=== PATIENT | male | born 1985 | race Caucasian/White ===

== ENCOUNTER 2018-03-09 21:11 | Emergency (ER) | payer OTHER ==
[2018-03-09 21:23] VITALS: BP 151/94; PULSE 87; O2SAT 98
--- NOTE | 2018-03-09 21:34 | ERPHSYRPT ---
- History of Present Illness Time Seen by Provider: 03/09/18 21:29 Source: patient, police Exam Limitations: no limitations Patient Subjective Stated Complaint: pt is alert and oriented. pt is ambulatory. pt states that he tripped and the back of a chair caught him in the mouth and his tooth went through his lip. pt has a puncture to his inner and out lower lip on the left side. not actively bleeding. pt states he never hit the floor, did not lose consciousness, pt also denies hitting his head. Triage Nursing Assessment: see above Physician History: The patient is a 33-year-old male inmate at the [facility] accompanied by the director account management complaining that he tripped 2 hours ago, causing his lower lip to hit the back of the chair. When he hit the back of the chair, wanted his bottom teeth penetrated through his lower lip. He did not lose consciousness. His tetanus vaccination is 3 years old. Occurred: this evening, hours ago (2) Reason for Fall: tripped, fell from standing pos Injuries/Pain Location: face (lower lip) Loss of Consciousness: no loss of consciousness Quality: aching Severity of Pain-Max: mild Severity of Pain-Current: mild Modifying Factors: Improves With: nothing Associated Symptoms (Fall): denies symptoms Allergies/Adverse Reactions: No Known Drug Allergies Allergy (Unverified 03/09/18 21:23) Home Medications: No Reportable Medications [No Reported Medications] 03/09/18 [History] Hx Tetanus, Diphtheria Vaccination/Date Given: Yes (2014) Hx Influenza Vaccination/Date Given: Yes (Jan 2018) Immunizations Up to Date: Yes - Review of Systems Constitutional: No Fever, No Chills Eyes: No Symptoms Ears, Nose, & Throat: Other (lower lip lac) Respiratory: No Cough, No Dyspnea Cardiac: No Chest Pain, No Edema, No Syncope Abdominal/Gastrointestinal: No Abdominal Pain, No Nausea, No Vomiting, No Diarrhea Genitourinary Symptoms: No Dysuria Musculoskeletal: Fall, Injury Skin: Other (lac) Neurological: No Dizziness, No Focal Weakness, No Sensory Changes Psychological: No Symptoms Endocrine: No Symptoms Hematologic/Lymphatic: No Symptoms Immunological/Allergic: No Symptoms All Other Systems: Reviewed and Negative - Past Medical History Pertinent Past Medical History: No - Past Surgical History Past Surgical History: Yes Neuro Surgical History: No Pertinent History Cardiac: No Pertinent History Respiratory: No Pertinent History Gastrointestinal: No Pertinent History Genitourinary: No Pertinent History Musculoskeletal: Other Male Surgical History: No Pertinent History Other Surgical History: Group A strep in bicep surgery. - Social History Smoking Status: Former smoker Drug Use: none - Nursing Vital Signs Nursing Vital Signs: Initial Vital Signs Temperature 97.7 F 03/09/18 21:12 Pulse Rate 87 03/09/18 21:12 Respiratory Rate 16 03/09/18 21:12 Blood Pressure 151/94 03/09/18 21:12 O2 Sat by Pulse Oximetry 98 03/09/18 21:12 Pain Scale Pain Intensity 6 - Patricia Coma Score Best Eye Response (Douglass): (4) open spontaneously Best Verbal Response (Douglass): (5) oriented Best Motor Response (Patricia): (6) obeys commands Patricia Total: 15 - Physical Exam General Appearance: no apparent distress, alert Head Injury: lacerations (0.5 laceration to lower lip with penetration to oral buccal mucosa) Eye Exam: PERRL/EOMI ENT Exam: airway nml Neck Exam: normal inspection, No tenderness Respiratory/Chest Exam: normal breath sounds, No chest tenderness, No respiratory distress Cardiovascular Exam: normal heart sounds, regular rate/rhythm Gastrointestinal Exam: soft, No tenderness, No distention, No guarding, No ecchymosis Rectal Exam: not done Back Exam: normal inspection, No vertebral tenderness Extremity Exam: normal inspection, normal range of motion, pelvis stable, No deformities Neurologic Exam: alert, oriented x 3, cooperative, sensation nml, No motor deficits Skin Exam: laceration (0.5 cm through and through penetrating laceration to lower lip.) SpO2: 98 Oxygen Delivery: Room Air - Progress Progress: unchanged - Departure Time of Disposition: 21:34 Departure Disposition: Home Clinical Impression: Laceration of lower lip, Fall Condition: Stable Critical Care Time: No Additional Instructions: You have a penetrating wound to your lower lip. Suturing is not required for repair. The laceration will heal quickly on its own. Take Tylenol and ibuprofen as needed.
== END 2018-03-09 21:45 | disposition home or self-care (01) ==
LOC: ED 21:11
DX: S01.511A Laceration without foreign body of lip, initial encounter (principal); W01.190A Fall on same level from slipping, tripping and stumbling with subsequent striking against furniture, initial encounter; Y93.9 Activity, unspecified; Y92.149 Unspecified place in prison as the place of occurrence of the external cause
CPT/HCPCS: 99283

== ENCOUNTER 2020-06-08 19:30 | Emergency (ER) | payer OTHER ==
[2020-06-08] MEDS ORDERED: XYLOCAINE 1% HCL 20 ML MDV IJ ONE (19:31)
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
[2020-06-08] MEDS ORDERED: Ativan 1 MG PO ONE (20:56)
[2020-06-08 21:04] LABS: Appearance SLIGHTLY CLOUDY (CLEAR); Bilirubin NEGATIVE (NEGATIVE); Blood NEGATIVE Ery/ul (0-5); Glucose NEGATIVE (NEGATIVE); Ketones NEGATIVE (NEGATIVE); Leukocyte Esterase NEGATIVE (NEGATIVE); Nitrite NEGATIVE (NEGATIVE); Protein,Urine Dip NEGATIVE (Negative); Specific Gravity 1.008 (1.005-1.025); Urobilinogen NEGATIVE mg/dL (0-1)
[2020-06-08] MEDS ORDERED: Ativan 1 MG ONE (21:07)
[2020-06-08 21:18] LABS: Amphetamine,Urine POSITIVE (NEGATIVE); Barbiturate,Urine NEGATIVE (NEGATIVE); Benzodiazepine,Urine POSITIVE (NEGATIVE); Cocaine,Urine NEGATIVE (NEGATIVE); Methadone,Urine NEGATIVE (NEGATIVE); Opiate,Urine NEGATIVE (NEGATIVE); PCP,Urine NEGATIVE (NEGATIVE); THC,Urine POSITIVE (NEGATIVE)
[2020-06-08 21:55] LABS: ACETAMINOPHEN < 10 ug/ml (10-30); ETHYL ALCOHOL < 10 mg/dL (0-10); SALICYLATE < 1.0 mg/dL (2-20)
[2020-06-08 22:08] VITALS: BP 137/92
[2020-06-08 22:32] LABS: CHLAMYDIA DNA NOT DETECTED (NEGATIVE); GC DNA Probe DETECTED (NEGATIVE)
[2020-06-08] MEDS ORDERED: Klonopin 0.5 MG ONE (22:37)
[2020-06-08] MEDS ORDERED: Rocephin 1000 MG INJ IM ONE (22:51)
[2020-06-08] MEDS ORDERED: Vibramycin 100 MG PO ONE (22:55)
[2020-06-08] MEDS ORDERED: Vibramycin 100 MG ONE (23:05)
[2020-06-08] MEDS ORDERED: Rocephin 1000 MG INJ ONE (23:05)
[2020-06-08 23:17] VITALS: PULSE 98; O2SAT 99
[2020-06-09] MEDS ORDERED: Klonopin 0.5 MG PO ONE (22:22)
== END 2020-06-08 23:25 | disposition home or self-care (01) ==
LOC: ED 19:30
DX: F19.10 Other psychoactive substance abuse, uncomplicated (principal); R07.89 Other chest pain; A54.9 Gonococcal infection, unspecified
CPT/HCPCS: 36415; 80307; 81001; 84484; 87491; 87591; 93005; 94760; 96372; 99284; G0480; J0696; A9270-GY